=== PATIENT | female | born 1960 | race Caucasian/White ===

== ENCOUNTER 2022-06-24 08:29 | Emergency (ER) | payer MEDICAID ==
[~2022-06-24] VITALS: Ht 162.6 cm; Wt 65.8 kg
[2022-06-24] MEDS ORDERED: IBUPROFEN 600 MG TABLET PO ONE (08:45)
--- NOTE | 2022-06-24 08:52 | NUR ---
DR MORENO AT BEDSIDE FOR EVALUATION.
[2022-06-24] MEDS ORDERED: IBUPROFEN 600 MG TABLET ONE (09:01)
[2022-06-24] MEDS ORDERED: ACETAMINOPHEN ES 500 MG TABLET ONE (09:05)
--- NOTE | 2022-06-24 09:10 | NUR ---
pt refused mortin 600mg, requesting Tylenol instead. to order.
[2022-06-24] MEDS ORDERED: ACETAMINOPHEN ES 500 MG TABLET PO ONE (09:15)
--- NOTE | 2022-06-24 09:53 | NUR ---
short leg posterior splint applied, tolerated and instructed on removal and application. Patient has her own personal crutch that she has been using, observed to be using correctly. pt instructed to follow up with PCP/ortho. Patient discharged to home in stable condition. Written and verbal after care instructions given. Patient verbalizes understanding of instructions. Stressed follow up or return to ER for worsening s/s.
== END 2022-06-24 09:48 | disposition home or self-care (01) ==
LOC: ER 08:29
DX: S92.332A Displaced fracture of third metatarsal bone, left foot, initial encounter for closed fracture (principal); S92.342A Displaced fracture of fourth metatarsal bone, left foot, initial encounter for closed fracture; W01.0XXA Fall on same level from slipping, tripping and stumbling without subsequent striking against object, initial encounter; Y92.511 Restaurant or cafe as the place of occurrence of the external cause; S70.02XA Contusion of left hip, initial encounter
CPT/HCPCS: 73502; 73630; A4663; A9150

== ENCOUNTER 2023-01-24 12:40 | Emergency (ER) | payer MEDICAID ==
[~2023-01-24] VITALS: Ht 162.6 cm; Wt 65.8 kg
[2023-01-24] MEDS ORDERED: ALBU6.7H9 INH (13:29)
[2023-01-24] MEDS ORDERED: CETI1TAB9 PO (13:29)
--- NOTE | 2023-01-24 13:39 | NUR ---
Patient discharged to home by Dr Asencio in stable condition with brisk steady gait. Written and verbal after care instructions given to patient. Patient verbalized understanding and compliance of instructions. Stressed follow up with primary doctor this week or return to ER for worsening s/s.
--- NOTE | 2023-01-24 13:40 | NUR ---
CD copy and official radiology chest x-ray results were handed to patient per MD order.
[2023-01-24 13:43] VITALS: BP 110/70
== END 2023-01-24 13:44 | disposition home or self-care (01) ==
LOC: ER 12:43
DX: J40 Bronchitis, not specified as acute or chronic (principal); F17.210 Nicotine dependence, cigarettes, uncomplicated; R07.89 Other chest pain
CPT/HCPCS: 71045; A4663

== ENCOUNTER 2023-07-28 17:31 | Emergency (ER) | payer MEDICAID ==
[~2023-07-28] VITALS: Ht 162.6 cm; Wt 65.8 kg
[~2023-07-28 17:31] MED LIST: ALBU6.7H9 INH; CETI1TAB9 PO
[2023-07-28 19:12] VITALS: BP 103/50; O2SAT 98
== END 2023-07-28 19:14 | disposition home or self-care (01) ==
LOC: ER 17:33
DX: M79.642 Pain in left hand (principal); M77.8 Other enthesopathies, not elsewhere classified; F17.210 Nicotine dependence, cigarettes, uncomplicated; Z79.899 Other long term (current) drug therapy
CPT/HCPCS: A4663

== ENCOUNTER 2023-08-23 19:24 | Emergency (ER) | payer MEDICAID ==
[~2023-08-23] VITALS: Ht 162.6 cm; Wt 79.4 kg
[2023-08-23 20:48] LABS: BASOPHILS # (AUTO) 0.1 K/UL (0.0-0.2); EOSINOPHILS # (AUTO) 0.4 K/uL (0.0-0.7); EOSINOPHILS % (AUTO) 6.5 % (0.0-7.0); HEMATOCRIT 36.2 % (31.2-41.9); HEMOGLOBIN 12.2 g/dL (10.9-14.3); LYMPHOCYTES # (AUTO) 2.1 K/uL (0.8-4.8); LYMPHOCYTES % (AUTO) 30.4 % (20.5-51.5); MEAN CORPUSCULAR HEMOGLOBIN 32.9 uug (24.7-32.8); MEAN CORPUSCULAR HGB CONC 34 g/dL (32.3-35.6); MONOCYTES # (AUTO) 0.6 K/uL (0.1-1.30); MONOCYTES % (AUTO) 8.3 % (0.0-11.0); NEUTROPHILS # (AUTO) 3.7 K/uL (1.8-8.9); NEUTROPHILS % (AUTO) 53.8 % (38.5-71.5); PLATELET COUNT (AUTO) 200 K/uL (179-408); RED CELL DISTRIBUTION WIDTH 13.4 % (12.3-17.7); WHITE BLOOD COUNT (AUTO) 6.8 K/uL (3.8-11.8)
[2023-08-23 20:57] LABS: CALCIUM 9.1 mg/dL (8.5-10.1); CARBON DIOXIDE 28 mmol/L (21-32); CHLORIDE 103 mmol/L (98-107); CREATININE 0.7 mg/dL (0.6-1.3); DIFFERENTIAL COMMENT 1; GLUCOSE 115 mg/dL (74-106); POTASSIUM 3.7 mmol/L (3.5-5.1); SODIUM SERUM 138 mmol/L (136-145); UREA NITROGEN, BLOOD 23 mg/dL (7-18)
[2023-08-23 21:09] LABS: ALANINE AMINOTRANSFERASE 32 U/L (14-59); ALBUMIN 3.9 g/dL (3.4-5.0); ALKALINE PHOSPHATASE 49 U/L (50-136); ASPARTATE AMINOTRANSFERASE 35 U/L (15-37); BILIRUBIN,DIRECT < 0.1 mg/dL (0.0-0.2); BILIRUBIN,TOTAL 0.3 mg/dL (0.2-1.0); NT-PRO BNP 117 pg/mL (0-125); TOTAL PROTEIN, SERUM 3.6 g/dL (6.4-8.2)
[2023-08-23 21:53] VITALS: BP 119/69; TEMP 98.2; O2SAT 98
== END 2023-08-23 21:45 | disposition home or self-care (01) ==
LOC: ER 19:27
DX: S80.12XA Contusion of left lower leg, initial encounter (principal); F17.210 Nicotine dependence, cigarettes, uncomplicated; Z79.899 Other long term (current) drug therapy; W10.9XXA Fall (on) (from) unspecified stairs and steps, initial encounter; Y93.89 Activity, other specified; Y92.39 Other specified sports and athletic area as the place of occurrence of the external cause; Y99.8 Other external cause status
CPT/HCPCS: 36415; 73590; 84484; 85025; 85730; 93005; A4606; A4663

== ENCOUNTER 2025-07-20 12:05 | Emergency (ER) | payer MEDICAID ==
[~2025-07-20] VITALS: Ht 152.4 cm; Wt 66.2 kg
[2025-07-20 12:09] VITALS: BP 118/78
[2025-07-20 13:07] LABS: PLATELET COUNT (AUTO) 180 K/uL (179-408); RED BLOOD CELL COUNT(AUTO) 4.00 MIL/uL (3.63-4.92); RED CELL DISTRIBUTION WIDTH 13.5 % (12.3-17.7); WHITE BLOOD COUNT (AUTO) 4.5 K/uL (3.8-11.8)
[2025-07-20 13:21] LABS: ASPARTATE AMINOTRANSFERASE 21 U/L (15-37); CREATININE 0.6 mg/dL (0.6-1.3); SODIUM SERUM 142 mmol/L (136-145); TOTAL PROTEIN, SERUM 6.8 g/dL (6.4-8.2); UREA NITROGEN, BLOOD 16 mg/dL (7-18)
[2025-07-20 15:24] VITALS: BP 120/76; TEMP 97.8; O2SAT 98
== END 2025-07-20 15:10 | disposition home or self-care (01) ==
LOC: ER 12:05
DX: R07.89 Other chest pain (principal); F17.200 Nicotine dependence, unspecified, uncomplicated
CPT/HCPCS: 36415; 71045; 84484; 85025; A4606; A4663